=== PATIENT | male | born 1970 | race Caucasian/White ===

== ENCOUNTER 2019-08-18 00:24 | Emergency (ER) | payer OTHER ==
[~2019-08-18] VITALS: Ht 170.2 cm; Wt 93.9 kg
[2019-08-18 00:28] VITALS: Ht 170.2 cm; Wt 93.9 kg
[2019-08-18 01:44] VITALS: BP 148/97
== END 2019-08-18 01:44 | disposition home or self-care (01) ==
LOC: ED 00:24
DX: S61.412A Laceration without foreign body of left hand, initial encounter (principal); S60.312A Abrasion of left thumb, initial encounter; W54.0XXA Bitten by dog, initial encounter; Y93.89 Activity, other specified; Y92.89 Other specified places as the place of occurrence of the external cause; Y99.8 Other external cause status
CPT/HCPCS: 90715

== ENCOUNTER 2019-08-20 17:45 | Emergency (ER) | payer OTHER ==
[~2019-08-20] VITALS: Ht 167.6 cm; Wt 93.4 kg
[2019-08-20 18:28] VITALS: Ht 167.6 cm; Wt 93.4 kg
[2019-08-20 19:21] VITALS: BP 129/80
== END 2019-08-20 19:21 | disposition home or self-care (01) ==
LOC: ED 17:45
DX: S61.452D Open bite of left hand, subsequent encounter (principal); E78.00 Pure hypercholesterolemia, unspecified; W54.0XXD Bitten by dog, subsequent encounter